=== PATIENT | male | born 1995 | race Caucasian/White ===

== ENCOUNTER 2017-10-18 07:56 | Emergency (ER) | payer BC, OTHER ==
[~2017-10-18] VITALS: Ht 165.1 cm; Wt 77.2 kg
[~2017-10-18 07:56] MED LIST: INSU100C SQ; INSU100C5 SQ; INSU100I14; INSU100V19; METH5TAB75
[2017-10-18 07:59] VITALS: Ht 165.1 cm; Wt 77.2 kg
--- NOTE | 2017-10-18 08:37 | ERD ---
ER Documentation Chief Complaint Chief Complaint cough , chest congestion x 4 days HPI 22-year-old male, with history of type 1 diabetes mellitus, presents to the emergency department complaining of worsening of respiratory symptoms for 4 days including cough with productive greenish sputum, subjective fever, chest congestion and general malaise. The patient has been taking [id number]-pcx-upcukox medication without improvement of the symptoms. He denies chest pain, shortness of breath. No diarrhea, vomiting, no urinary symptoms. ROS A 12-point review of systems was performed and negative other than presented in the history of present illness. SYSTEMIC symptoms: no fever, chills, no night sweats, no weight loss EYE symptoms: No blurred vision, no eye discharge OTOLARYNGEAL symptoms: No hearing loss. No ear pain, no sore throat CARDIOVASCULAR symptoms: No chest pain or discomfort, no palpitations. PULMONARY symptoms: Per HPI GASTROINTESTINAL symptoms: No abdominal pain, no nausea, no vomiting, no diarrhea MUSCULOSKELETAL symptoms: No arthralgias, no muscle aches. NEUROLOGY symptoms: No confusion, no syncope, no numbness or tingling. SKIN: No rashes Medications Home Meds Active Scripts Azithromycin* (Azithromycin*) 250 Mg Tablet, 250 MG PO DAILY, #4 TAB Prov:JUAN CONNOR MD 10/18/17 Promethazine HCl/Codeine (Prometh-Codein 6.25-10 mg/5 ml) 5 Ml Syrup, 5 ML PO QHS for COUGH for 5 Days, #120 ML Prov:JUAN CONNOR MD 10/18/17 Albuterol Sulfate* (Proair HFA*) 8.5 Gm Hfa.aer.ad, 2 PUFF INH Q6H Y for WHEEZING AND SOB, #1 INHALER Prov:JUAN CONNOR MD 10/18/17 Reported Medications Insulin Lispro (Humalog) 100 U/Ml Cartridge, 0 SQ DAILY 09/22/13 Insulin Glargine,Hum.rec.anlog (Lantus) 100 U/Ml Cartridge, 0 SQ DAILY 09/22/13 Methimazole* (Tapazole*) 5 Mg Tablet 11/03/09 Insulin Glargine,Hum.rec.anlog (Lantus) 100 U/Ml Vial 11/03/09 Insulin Lispro (Humalog) 100 U/Ml Insuln.pen 11/03/09 Allergies Allergies: Coded Allergies: No Known Allergies (Verified Allergy, Mild, 09/22/13) PMhx/Soc History of Surgery: No Hx Neurological Disorder: No Hx Respiratory Disorders: No Hx Cardiac Disorders: No Hx Psychiatric Problems: Yes (insomnia depression drug abuse alcohalism) Hx Miscellaneous Medical Probl: Yes (GASTROPARESIS) Hx Alcohol Use: Yes Hx Substance Use: Yes Hx Tobacco Use: Yes Smoking Status: Current every day smoker Physical Exam Vitals Vital Signs Date Time Temp Pulse Resp B/P Pulse Ox O2 Delivery O2 Flow Rate FiO2 10/18/17 09:30 107 20 98 21 10/18/17 07:59 97.7 108 18 129/72 98 Physical Exam Patient is in mild acute distress due to cough, vital signs stable. Alert and fully oriented. EYES: PERRLA, EOMI, Sclera and conjunctiva appear normal. EARS: Canals clear, tympanic membranes WNL THROAT: Normal oropharynx. NECK: Supple, No lymphadenopathy. Full ROM without pain or tenderness. HEART: RRR, no rubs, murmurs, clicks or gallops. LUNGS: Bilateral rhonchi with mild expiratory wheezing ABDOMEN: Soft, non-tender without masses or hepatosplenomegaly. EXTREMITIES: No edema bilaterally. BACK: Full ROM, no deformity, normal back exam NEURO: Cranial nerves grossly intact, no motor or sensory deficit Mild acute distress due to cough Results 24 hrs Current Medications Medications (Trade) Dose Ordered Sig/[place] Route PRN Reason Start Time Stop Time Status Last Admin Dose Admin Albuterol (Proventil 0.083% (Neb)) 5 mg ONCE STAT NEB 10/18/17 08:42 10/18/17 08:47 DC 10/18/17 09:20 Ipratropium [place] (Atrovent 0.02% (Neb)) 0.5 mg ONCE STAT NEB 10/18/17 08:42 10/18/17 08:47 DC 10/18/17 09:19 Procedures/MDM 22-year-old male, with history of type 1 diabetes mellitus, presents to the emergency department complaining of worsening of respiratory symptoms. Vital signs stable, Physical exam Revealed audible productive cough with bilateral rhonchi and mild expiratory wheezing. Differential diagnosis include but not limited to Respiratory infection bacterial/viral/fungal. Asthma, pneumonitis, allergies, GERD. Less likely foreign body aspiration, cardiac related, aspiration pneumonia, malignancy. Pertinent Data: Influenza test: negative Radiology: Chest XR showed no acute cardiopulmonary disease Physical examination and clinical presentation consistent most likely with Wheezy bronchitis. During the ED course the patient remained stable, no new complaints. The patient received treatment with Duoneb nebulized presenting overall improvement of the symptoms. Results and clinical impression discussed with patient who agrees with management. The patient is stable to be treated outpatient and will be discharged home with a Rx for azithromycin, cough medication and ProAir, some side effects of prescribed medications (headache, rash, nausea, vomiting, diarrhea, drowsiness, habituation, bleeding, hypertension, interactions with other medications) were reviewed. The patient was instructed to follow up with the primary care provider in the next 48h. If symptoms persist, worsen or new symptoms develop, then patient should return to the ED immediately. Instructions explained and given directly by me to the patient in [place] with acknowledgment and demonstrated understanding. Disclaimer: Inadvertent spelling and grammatical errors are likely due to EHR/ dictation software use and do not reflect on the overall quality of patient care. Also, please note that the electronic time recorded on this note does not necessarily reflect the actual time of the patient encounter. Departure Diagnosis: Primary Impression: Acute wheezy bronchitis Condition: Stable Additional Instructions: Call your primary care doctor TOMORROW for an appointment during the next 1-2 days. See the doctor sooner or return here if your condition worsens before your appointment time. Thank you very much for allowing us to participate in your care. Your health and safety is our top priority at [facility]. Have prescriptions filled and follow precisely the directions on the label. Follow-up with primary care provider during the next 4 days and bring all the information and medications prescribed. If illness has not improved in 2 days, then make an appointment with primary care provider. If the provider is unavailable, return to the Emergency Department immediately. JUAN CONNOR MD Oct 18, 2017 08:37
[2017-10-18] MEDS ORDERED: IPRATROPIUM (NEB) 0.5 MG/2.5 ML AMP NEB STA (08:42)
[2017-10-18] MEDS ORDERED: ALBUTEROL 0.083% (NEB) 2.5 MG/3 ML AMP NEB STA (08:42)
--- NOTE | 2017-10-18 09:50 | RADRPT ---
PROCEDURE: XR Chest. CLINICAL INDICATION: Cough. Fever. TECHNIQUE: Frontal chest x-ray was obtained. COMPARISON: None. FINDINGS: Heart is not enlarged. Mediastinum is not widened. No hilar masses seen. Lungs are clear of any infi ltrates. There is no effusion or pneumothorax. The osseous structures are normal. IMPRESSION: No evidence for active cardiopulmonary disease. .Milo Garcia MD, MD Date Time Electronically viewed and signed by .Milo Garcia MD, on 10/18/2017 09:50 .A/
[2017-10-18] MEDS ORDERED: AZIT250T6 PO (10:18)
[2017-10-18] MEDS ORDERED: PROM5SYR2 PO (10:18)
[2017-10-18] MEDS ORDERED: ALBU8.5H3 INH (10:18)
== END 2017-10-18 10:48 | disposition home or self-care (01) ==
LOC: FTE 07:56
DX: J20.9 Acute bronchitis, unspecified (principal); F17.210 Nicotine dependence, cigarettes, uncomplicated; Z79.4 Long term (current) use of insulin
CPT/HCPCS: 71020; 87400; 94640; 94664; 99284; Z7610

== ENCOUNTER 2017-10-31 22:28 | Emergency (ER) | END 2017-10-31 22:50 | disposition home or self-care (01) ==